=== PATIENT | male | born 1970 | race African-American/Black ===

== ENCOUNTER 2017-07-24 16:46 | Emergency (ER) | payer MEDICAID, MEDICARE ==
[~2017-07-24] VITALS: Ht 170.2 cm; Wt 90.7 kg
[2017-07-24 17:08] VITALS: BP 125/67
--- NOTE | 2017-07-24 19:15 | NUR ---
PATIENT LEFT WITHOUT BEING SEEN BY DR. LIMON. NO FURTHER CARE PROVIDED FOR PATIENT.
== END 2017-07-24 19:15 | disposition left against medical advice (07) ==
LOC: MED 16:46
DX: Z53.21 Procedure and treatment not carried out due to patient leaving prior to being seen by health care provider (principal)